=== PATIENT | female | born 1970 | race Caucasian/White ===

== ENCOUNTER 2019-04-26 10:34 | Outpatient (CLI) | payer BC ==
--- NOTE | 2019-05-08 06:47 | MMO ---
Bilateral MAMMO Bilat Screen [facility]. CLINICAL HISTORY: Patient is 48 years old and is seen for screening. VIEWS: The views performed were: bilateral craniocaudal with tomosynthesis and bilateral mediolateral oblique with tomosynthesis. FILMS COMPARED: The present examination has been compared to prior imaging studies performed at [facility] on 12/27/2012, and at [facility] on 04/03/2014, 04/21/2015 and 04/24/2015. MAMMOGRAM FINDINGS: There are scattered fibroglandular densities. There is a stable mass seen in the right breast. There are no suspicious masses, suspicious calcifications, or new areas of architectural distortion. IMPRESSION: THERE IS NO MAMMOGRAPHIC EVIDENCE OF MALIGNANCY. A ROUTINE FOLLOW-UP MAMMOGRAM IN 1 YEAR IS RECOMMENDED. THE RESULTS OF THIS EXAM WERE SENT TO THE PATIENT. ACR BI-RADS Category 2 - Benign finding MAMMOGRAPHY NOTE: 1. A negative mammogram report should not delay a biopsy if a dominant of clinically suspicious mass is present. 2. Approximately 10% to 15% of breast cancers are not detected by mammography. 3. Adenosis and dense breasts may obscure an underlying neoplasm. Reported by: MICHELLE GOODRICH MD Electonically Signed: [id number]
== END 2019-04-26 10:35 | disposition home or self-care (01) ==
LOC: BICMAMMO 10:34
PROVIDERS: ATTEND Family Medicine
DX: Z12.31 Encounter for screening mammogram for malignant neoplasm of breast (principal)
CPT/HCPCS: 77063; 77067

== ENCOUNTER 2019-05-15 07:15 | Outpatient (CLI) | payer BC ==
--- NOTE | 2019-05-15 09:34 | CT ---
CT ABDOMEN AND PELVIS WITH AND WITHOUT IV CONTRAST: HISTORY: Abdominal mass. FINDINGS: The lung bases are clear. There are tiny gallstones. The liver demonstrates decreased attenuation, compared to the spleen, consistent with fatty infiltration. There is a 1 cm subcapsular focal area o f hyperenhancement at the inferior aspect of the right lobe of the liver. No abnormal biliary ductal dilatation is seen. The spleen, pancreas, and adrenal glands are normal. There is an 8 mm, nonobst ructing right renal calculus. A couple small low density lesions in the left renal cortex, measuring up to 7 mm, are likely cysts. No free air, free fluid, or lymphadenopathy is noted in the abdomen or pelvis. The small bowel loops are not abnormally dilated. A normal appearing appendix is present. There is no evidence of aneury smal dilatation of the abdominal aorta. Uterus and ovaries are present. A fibroid uterus is noted with an exophytic abdominopelvic mass/fibr oid arising from the uterus, measuring 13.5 x 9.7 x 12.3 cm. There is a 17 mm lesion in the right ov chay with peripheral enhancement and cannulated margins, consistent with a corpus luteal cyst. There is a small, sclerotic focus involving the L4 vertebral body, likely a bone island. IMPRESSION: 1. Fatty liver. 2. A 1 cm, hyperenhancing right liver lobe lesion, most likely a flash filling hemangioma. Other po ssibilities include benign or malignant/metastatic neoplasia. 3. Nonobstructing, 8 mm right renal calculus. 4. Tiny left renal cysts. 5. Fibroid uterus with a large, exophytic abdominopelvic fibroid. 6. Cholelithiasis. POS: OFF
[2019-05-15] MEDS ORDERED: Iopamidol 370 76% 100 ML VIAL ONE (10:20)
== END 2019-05-15 07:16 | disposition home or self-care (01) ==
LOC: CT 07:15
PROVIDERS: ATTEND Family Medicine
DX: R19.00 Intra-abdominal and pelvic swelling, mass and lump, unspecified site (principal); N28.1 Cyst of kidney, acquired; K80.20 Calculus of gallbladder without cholecystitis without obstruction; D25.9 Leiomyoma of uterus, unspecified; K76.0 Fatty (change of) liver, not elsewhere classified; N20.0 Calculus of kidney; K76.9 Liver disease, unspecified
CPT/HCPCS: 74178; Q9967

== ENCOUNTER 2019-09-03 06:42 | Outpatient (CLI) | payer BC ==
[2019-09-03 11:31] LABS: ALT (SGPT) 72 U/L (8-55); AST (SGOT) 32 U/L (5-34); Albumin 4.2 g/dL (3.5-5.0); Alkaline Phosphatase 80 U/L (40-110); Anion Gap 11 mmol/L (10-20); BUN (Urea Nitrogen) 10 mg/dL (7.0-18.7); Bilirubin, Direct 0.3 mg/dL (0.1-0.3); Bilirubin, Total 0.8 mg/dL (0.2-1.2); Calc. Creatinine Clearance 0 mL/min (70-130); Carbon Dioxide 24 mmol/L (22-29); Chloride 107 mmol/L (98-107); Estimated GFR-MDRD Greater than 90; Globulin 3.1 g/dL (2.4-3.5); Glucose 80 mg/dL (70-105); Potassium 3.4 mmol/L (3.5-5.1); Protein, Total 7.3 g/dL (6.0-8.3); Sodium 139 mmol/L (136-145)
== END 2019-09-03 06:43 | disposition home or self-care (01) ==
LOC: LABBT 06:42
PROVIDERS: ATTEND Obstetrics & Gynecology
DX: Z01.812 Encounter for preprocedural laboratory examination (principal); D25.9 Leiomyoma of uterus, unspecified
CPT/HCPCS: 80053; 80076

== ENCOUNTER 2019-09-04 10:20 | Day surgery (SDC) | payer BC ==
[2019-09-03 08:41] VITALS: BMI 34.4
[2019-09-03 11:20] LABS: #Eosinphils 0.3 thou/uL (0.0-0.7); #Monocytes 0.7 thou/uL (0.11-0.59); #Neutrophils 5.4 thou/uL (1.40-6.50); %Basophils 0.5 % (0.0-1.0); %Lymphocytes 23.4 % (21.0-51.0); %Monocytes 8.1 % (0.0-10.0); Hemoglobin 13.9 g/dL (12.0-16.0); Mean Corpuscular HGB CONC 33.1 g/dL (32.0-36.0); Mean Corpuscular Hemoglobin 28.2 pg (27.0-31.0); Mean Corpuscular Volume 85.1 fL (78.0-98.0); Platelet Count 281 thou/uL (130-400); RBC Distribution Width 12.7 % (11.5-14.5); Red Blood Cell (RBC) Count 4.93 mill/uL (4.20-5.40); White Blood Cell (WBC) Count 8.4 thou/uL (4.8-10.8)
[~2019-09-04 10:20] MED LIST: Dexamethasone 20 MG/5 ML VIAL ONE; Glycopyrrolate 0.2 MG/ML 5 ML SYRINGE ONE; Ketorolac Tromethamine 30 MG/ML VIAL ONE; Lidocaine 1% PF 5 ML VIAL ONE; Ondansetron PF 4 MG/2 ML Vial ONE; PROPOFOL 200 MG/20 ML VIAL ONE; Rocuronium Bromide 10 MG/ML (10ML VIAL) ONE; Vecuronium 10 MG VIAL ONE; diphenhydrAMINE 50 MG/ML VIAL ONE; ePHEDrine/0.9% NaCl/PF SYRINGE 50 mg/10 ml ONE
[2019-09-04] MEDS ORDERED: Midazolam HCl 2 mg/2 ml Vial ONE (10:39)
[2019-09-04] MEDS ORDERED: Fentanyl 100 MCG/2 ML VIAL ONE ×2 (10:39→15:13)
[2019-09-04] MEDS ORDERED: Gabapentin 300 MG CAP ONE (11:00)
[2019-09-04] MEDS ORDERED: CeleCOXIB 100 MG CAP ONE (11:01)
[2019-09-04] MEDS ORDERED: Famotidine/PF 20 mg/2ml Vial ONE (11:01)
[2019-09-04] MEDS ORDERED: ceFOXitin 2 GM/50 ML Duplex BAG ONE (11:02)
[2019-09-04] MEDS ORDERED: Lidocaine 1% w/Epinephrine 1:100K 20 ML VIAL ONE (11:05)
[2019-09-04] MEDS ORDERED: Bupivacaine PF 0.5% 30 ML VIAL ONE (11:05)
[2019-09-04] MEDS ORDERED: Albuterol Sulfate HFA (OR ONLY) ONE (12:30)
[2019-09-04] MEDS ORDERED: Ropivacaine 0.2% 550 ML 750 ML NERVE BLCK SCH (13:30)
[2019-09-04] MEDS ORDERED: ROPIVACAINE HCL NERVE BLCK SCH (14:00)
[2019-09-04] MEDS ORDERED: ADMIXTURE FEE NERVE BLCK SCH (14:00)
[2019-09-04] MEDS ORDERED: Zolpidem Tartrate 5 MG TAB PO PRN (15:56)
[2019-09-04] MEDS ORDERED: diphenhydrAMINE 25 MG CAP PO PRN (15:56)
[2019-09-04] MEDS ORDERED: Promethazine HCl 25 MG/ML VIAL IM PRN ×2 (15:56→16:13)
[2019-09-04] MEDS ORDERED: Ondansetron PF 4 MG/2 ML Vial IVP PRN (15:56)
[2019-09-04] MEDS ORDERED: HYDROcodone/Acetaminophen 5/325 mg Tablet PO PRN ×2 (15:56)
[2019-09-04] MEDS ORDERED: Morphine 4 MG/ML VIAL SLOW IVP PRN (15:56)
[2019-09-04] MEDS ORDERED: Simethicone Chewable 80 MG TAB PO PRN (15:56)
[2019-09-04] MEDS ORDERED: Bisacodyl 10 MG SUPP PR PRN (15:56)
[2019-09-04] MEDS ORDERED: PACU-Morphine 4MG/ML VIAL SLOW IVP PRN (16:13)
[2019-09-04] MEDS ORDERED: HYDROmorphone 2 MG/ML VIAL SLOW IVP PRN (16:13)
[2019-09-04] MEDS ORDERED: Promethazine HCl 25 MG/ML VIAL SLOW IVP PRN (16:13)
[2019-09-04] MEDS ORDERED: Morphine Sulfate 2 MG/ML SYRINGE SLOW IVP PRN (16:13)
[2019-09-04] MEDS ORDERED: Ketorolac Tromethamine 30 MG/ML VIAL IVP PRN (16:13)
[2019-09-04] MEDS ORDERED: Meperidine HCl/PF 25 MG/ML VIAL SLOW IVP PRN (16:13)
[2019-09-04] MEDS ORDERED: Ondansetron HCl/PF 4 MG/2 ML Vial IVP PRN (16:13)
[2019-09-04] MEDS: Sodium Chloride 0.9% 1,000 ML IV SCH ×2 (18:00→23:56)
[2019-09-04] MEDS: Ketorolac Tromethamine 30 MG/ML VIAL IVP SCH ×2 (18:36→23:55)
--- NOTE | 2019-09-05 00:17 | OP ---
DATE OF PROCEDURE: 09/04/2019 PREOPERATIVE DIAGNOSES: 1. Large pelvic mass consistent with fibroid. 2. Planned cholecystectomy per Dr. Sexton. 3. Desires hysterectomy at the time of cholecystectomy. PROCEDURE: 1. Robotic total laparoscopic hysterectomy with left salpingectomy and right partial salpingectomy. 2. Placement of ON-Q pump following a laparoscopic cholecystectomy. 3. Extracorporeal contained morcellation of uterus and fibroid mass. COSURGEON: Joe Sexton MD. PURIFICATION SUPERVISOR: Yamilet Lassiter PA-C. COMPLICATIONS: None. ESTIMATED BLOOD LOSS: From hysterectomy approximately 50 mL. OPERATIVE FINDINGS: 1. The patient was status post cholecystectomy at the start of our case. 2. Small nulliparous cervix. No vaginal lesions or cervical lesions or masses. 3. Normal-appearing uterus with the exception of large pedunculated mass coming from the uterine fundus as approximately 15-18 cm in size. 4. Normal-appearing ovaries bilaterally. 5. Normal left fallopian tube. 6. Right fallopian tube adhered to right pelvic sidewall. 7. Surgical sites hemostatic after hysterectomy. DESCRIPTION OF PROCEDURE: The patient was taken back to the OR with IV fluids running. When she was in the OR, she was placed in lithotomy position and the patient was asleep. The patient was prepped and draped in normal fashion for gynecologic and laparoscopic surgery. Boykin catheter was placed in the bladder with a Galdino syringe, placed at the end for bladder manipulation if needed during the case. An operative speculum was placed in the vagina. A single-tooth tenaculum was used to grasp the anterior lip of the cervix. The uterus sounded to approximately 6 cm and a SCOTT-Zelalem manipulator was assembled with a 6 cm tip and a 3 cm cup. The Zelalem manipulator was placed into the uterus and vagina in routine fashion. At this point, Dr. Joe Sexton began the laparoscopic cholecystectomy and I left the operating room until his procedure was complete. I returned to the operating room after the cholecystectomy was complete. Dr. Sexton had placed a supraumbilical port and 2 right upper quadrant assist ports. Beginning at the supraumbilical port, a laparoscope was placed through this port and the patient was placed in Trendelenburg position. Immediately, a large pelvic mass was noted filling the pelvis. The camera was easily guided around the mass where a normal-appearing uterus and adnexa were noted in the mass that appeared to be connected by a stalk at the fundus. At this point, the decision was made to complete the hysterectomy and myomectomy laparoscopically. The supraumbilical incision which had a 12 mm port was extended to approximately 2.5 cm and Ronaldo retractor was placed in this incision. A GelPort cap was placed over it with a 12 mm port inside. Next, under direct visualization, the right and left lower quadrant 8 mm ports were placed after local anesthesia was injected under the skin. The stab incision was made with a scalpel. After these ports were placed, one of the most medial right upper quadrant port was removed and replaced with an 11 mm assist port. A laparoscopic EndoCatch bag was placed through the GelPort incision into the abdomen for retrieval of the specimen later during the case. Sterile cap was replaced. The abdomen was insufflated and robotic arms were docked. The instruments were entered under direct visualization. The hysterectomy began on the patient's left side where the left fallopian tube was grasped, elevated, cauterized, and transected. The ureter was noted to be running away from the planned area of dissection on the patient's left side. The left utero-ovarian ligament was cauterized and transected allowing the left ovary to fall away to the pelvic sidewall. The round ligament on the patient's left side was cauterized, transected, and divided into anterior posterior leaves. These were taken down towards the level of the uterine artery, which was cauterized and transected after it was identified. The anterior leaf was then dissected down towards the cervix and a bladder flap was created with the bladder dissected away from the planned colpotomy site. Attention was then turned to the contralateral side. The right fallopian tube was noted to be clubbed and adhered to the right pelvic sidewall, so it was not immediately removed, instead attention was turned to the utero-ovarian ligament on the patient's right side, which was cauterized and transected, and allowed the right ovary to fall away to the pelvic sidewall. Filmy adhesions were noted around the right ovary and right fallopian tube. These adhesions were taken down with the scissors to allow the anatomy to fall into its normal position. The round ligament on the patient's right side was cauterized, transected, and divided into anterior and posterior leaf. The uterine artery on the patient's right side was skeletonized and the bladder flap dissection was completed from the right side to the contralateral side with the bladder dissected away from the planned colpotomy site and the uterine arteries transected bilaterally. The colpotomy portion of the procedure then began beginning posteriorly. The colpotomy was made with palpation of the SCOTT-Zelalem manipulator ring through the cervical vaginal tissue. Monopolar scissors were used circumferentially to complete the colpotomy. This was done without difficulty in good visualization throughout the case. After the uterine specimen was completely free from the vagina, the vagina was irrigated and dried. Any small areas of bleeding were controlled with the fenestrated grasper. The vaginal cuff was then closed with Stratafix suture in a running locked fashion and closed in 2 layers. After the vaginal cuff was closed, the surgical sites were irrigated and suctioned dry and the pressure was dropped down to 6 mmHg with no areas of bleeding noted. Next, attention was turned to the right adnexa. Filmy adhesions around the fimbriated end of the fallopian tube and ovary were dissected. The fimbriated end of the fallopian tube was easily dissected away from the right ovary. This portion of the tube was removed and transected. An approximate remaining 2 cm of the fallopian tube was left in situ as it was edematous and densely adhered to the right ovary and pelvic sidewall. Prior to the dissection of the fallopian tube, the right ureter was identified and noted to be well away from the planned area of dissection. Next, the specimen was placed into the retrieval bag. After this was completed, the initial count was done and it was correct. Prior to the bag being brought up through the supraumbilical incision, ON-Q catheter tip was placed under direct visualization and placed into the pelvis. The bag was then brought up through the GelPOINT retractor. The Ronaldo O retractor was replaced with inside the bag. After the incision was extended approximately 1 more cm to a total of 3 cm in length. Next, approximate 1 hour was used to morcellate the specimen which weighed in the end just over 900 grams. An extracorporeal technique was used to completely morcellate the specimen contained within the bag. After the uterus and fibroid specimen were completely removed, the bag and retractor were removed. The incision was irrigated and dried. No areas of bleeding were noted from the incision. The supraumbilical incision was closed at the fascial layer with Vicryl suture. All 5 skin incisions were closed with Monocryl suture and dressed with Dermabond dressing. The vagina was inspected and no bleeding was noted. The patient was cleaned, dried, extubated, and transferred to the recovery room in good condition. Job ID: [id number]
[2019-09-05] MEDS: Ketorolac Tromethamine 30 MG/ML VIAL IVP SCH (05:31)
--- NOTE | 2019-09-05 08:21 | OP ---
DATE OF PROCEDURE: 09/04/2019 PREOPERATIVE DIAGNOSIS: Symptomatic cholelithiasis. PROCEDURE PERFORMED: Laparoscopic cholecystectomy. INDICATIONS: A 49-year-old female who has been having episodic right upper quadrant pain. Ultrasound showed cholelithiasis. FINDINGS: She had a very small caliber cystic duct. DESCRIPTION OF PROCEDURE: After informed consent was obtained, patient was taken to the operating room, given general endotracheal anesthesia, placed in the supine position. Abdomen was prepped and draped in usual fashion. An epigastric midline incision was performed sharply. The fascia incised and a blunt 12 mm trocar inserted. Pneumoperitoneum was created to a pressure of 15 mmHg. A 0 degree laparoscope inserted under direct vision. Three 5 mm ports were placed subcostally. The gallbladder was grasped and advanced superiorly. The peritoneum lysed distally to expose the cystic duct and cystic artery in critical view. These were triply ligated with hemoclips and divided. The gallbladder removed from its fossa utilizing electrocautery, removed from the abdomen through the umbilical port. Hemostasis was assured. The trocars were left in place for the gate technician to perform the hysterectomy. Job ID: [id number]
[2019-09-05 08:37] VITALS: BP 137/74
--- NOTE | 2019-09-05 08:55 | PDOC.EVN ---
Event Note - Event Note Event Note: POD1 S: doing well, minimal discomfort, mostly at CV angles. No N/V. O: VS WNL NAD nonlabored breathing no abdominal distention, minimal ttp, incisions CDI no cords A/P: POD1 sp laparoscopic cholecystectomy,. RATLH/right partial salpingectomy and left salpin with EXCITE of large fibroid. Doing well, plan to DC later today when post op goals are met.
[2019-09-05 12:39] VITALS: TEMP 98.5
[2019-09-09] MEDS ORDERED: Ibuprofen 800 MG TAB PO SCH (22:00)
== END 2019-09-05 13:48 | disposition home or self-care (01) ==
LOC: SDC 10:20 → 3SE 17:14 → SDC 09-05 13:48
PROVIDERS: ATTEND Obstetrics & Gynecology
PROC: 0UT74ZZ Resection of Bilateral Fallopian Tubes, Percutaneous Endoscopic Approach (ICD-10-PCS; principal; 2019-09-04)
PROC: 0FT44ZZ Resection of Gallbladder, Percutaneous Endoscopic Approach (ICD-10-PCS; principal; 2019-09-04)
PROC: 0UT94ZZ Resection of Uterus, Percutaneous Endoscopic Approach (ICD-10-PCS; principal; 2019-09-04)
DX: D25.9 Leiomyoma of uterus, unspecified (principal); N72 Inflammatory disease of cervix uteri; N83.8 Other noninflammatory disorders of ovary, fallopian tube and broad ligament; K80.11 Calculus of gallbladder with chronic cholecystitis with obstruction; Z79.899 Other long term (current) drug therapy; Z88.2 Allergy status to sulfonamides; Z91.013 Allergy to seafood
CPT/HCPCS: 36415; 85025; 86850; 86900; 86901; 88304; 88307; J0131; J0694; J1100; J1200; J1885; J2001; J2250; J2405; J2704; J2795; J3010; S0020; S0028

== ENCOUNTER 2020-07-16 10:20 | Outpatient (CLI) | payer BC | END 2020-07-16 10:21 | disposition home or self-care (01) | LOC: DTY/OP 10:20 | PROVIDERS: ATTEND Surgery | DX: E66.01 Morbid (severe) obesity due to excess calories (principal) | CPT/HCPCS: 97802 ==

== ENCOUNTER 2020-10-30 07:00 | Inpatient (IN) | payer BC ==
[2020-11-12] MEDS ORDERED: Fentanyl 250 MCG/5 ML VIAL ONE (08:46)
[2020-11-12] MEDS ORDERED: Bupivacaine 0.25% HCL 30 ML VIAL ONE (08:51)
[2020-11-12] MEDS ORDERED: XYLOCAINE 2%-EPI 1:100,000 20 ML VIAL ONE (08:51)
[2020-11-12] MEDS ORDERED: Dexamethasone 20 MG/5 ML VIAL ONE (09:21)
[2020-11-12] MEDS ORDERED: PROPOFOL 200 MG/20 ML VIAL ONE (09:21)
[2020-11-12] MEDS ORDERED: Rocuronium Bromide 10 MG/ML (10ML VIAL) ONE (09:21)
[2020-11-12] MEDS ORDERED: PHENYLEPHRINE-NS 100 MCG/ML 10 ML SYRINGE ONE (09:21)
[2020-11-12] MEDS ORDERED: Glycopyrrolate 0.2 MG/ML 5 ML SYRINGE ONE (09:21)
[2020-11-12] MEDS ORDERED: Lidocaine 1% PF 5 ML VIAL ONE (09:21)
[2020-11-12] MEDS ORDERED: Ondansetron PF 4 MG/2 ML Vial ONE (09:21)
[2020-11-12] MEDS ORDERED: SUGAMMADEX SODIUM 200 MG/2 ML VIAL ONE (10:28)
[2020-11-12] MEDS ORDERED: Dextrose 5% in Water 1,000 ML IV PRN (10:33)
[2020-11-12] MEDS ORDERED: Dextrose 50% Abboject 50 ML SYRINGE SLOW IVP PRN (10:33)
[2020-11-12] MEDS ORDERED: hydrALAZINE 20 MG/ML VIAL SLOW IVP PRN (10:33)
[2020-11-12] MEDS ORDERED: diphenhydrAMINE 50 MG/ML VIAL IVP PRN ×2 (10:33→10:45)
[2020-11-12] MEDS ORDERED: Promethazine HCl 25 MG/ML VIAL IM PRN ×3 (10:33→10:45)
[2020-11-12] MEDS ORDERED: Hydrocodone-Acetamin 15 ML UDCUP PO PRN (10:33)
[2020-11-12] MEDS ORDERED: Ondansetron PF 4 MG/2 ML Vial IVP PRN ×2 (10:33→10:45)
[2020-11-12] MEDS ORDERED: Meperidine HCl/PF 25 MG/ML VIAL SLOW IVP PRN (10:44)
[2020-11-12] MEDS ORDERED: Promethazine HCl 25 MG/ML VIAL SLOW IVP PRN (10:44)
[2020-11-12] MEDS ORDERED: Ondansetron HCl/PF 4 MG/2 ML Vial IVP PRN (10:44)
[2020-11-12] MEDS ORDERED: diphenhydrAMINE 25 MG CAP PO PRN (10:45)
[2020-11-12] MEDS ORDERED: Naloxone HCl 0.4 mg/ml Vial IV PRN (10:45)
[2020-11-12] MEDS ORDERED: Zolpidem Tartrate 5 MG TAB PO PRN (10:45)
[2020-11-12] MEDS ORDERED: HYDROmorphone 10 mg/100 ml CADD IVPB PRN (10:45)
[2020-11-12] MEDS ORDERED: Communication Order-Pharmacy FS SCH (10:45)
[2020-11-12] MEDS ORDERED: diphenhydrAMINE 50 MG/ML VIAL IM PRN (10:45)
[2020-11-12] MEDS ORDERED: Fentanyl 100 MCG/2 ML VIAL ONE (10:55)
[2020-11-12] MEDS ORDERED: Sodium Chloride 0.9% (PF) 10 ML VIAL FS PRN (11:00)
--- NOTE | 2020-11-12 11:17 | OP ---
DATE OF PROCEDURE: 11/12/2020 PREOPERATIVE DIAGNOSIS: Morbid obesity. PROCEDURE PERFORMED: Laparoscopic sleeve gastrectomy with esophagogastroscopy. INDICATIONS: This is a 50-year-old female, morbidly obese, who has attempted multiple weight loss programs without success. FINDINGS: A 38-Czech bougie used. DESCRIPTION OF PROCEDURE: After informed consent was obtained, the patient was taken to the operating room and given general endotracheal anesthesia, placed in the supine position. Abdomen was prepped and draped in the usual fashion. Local anesthesia was infiltrated subcutaneously and deep. A 12 mm incision was performed approximately 8 inches below the xiphoid slightly to the left. Veress needle inserted. Drop test performed. Pneumoperitoneum was created to a volume of 2 L of carbon dioxide. Utilizing a bladeless 12 mm trocar and 0 degree laparoscope, direct visual entry into the abdominal cavity was performed. Pneumoperitoneum was then created to a pressure of 15 mmHg and the patient was placed in a steep reverse Trendelenburg position. A Tracy liver retractor was inserted. Left lobe of the liver retracted superiorly. The pylorus was identified, and a 12 mm port was placed on the right beneath it and two 12's placed left subcostal. The omentum was taken off the greater curvature 5 cm from the pylorus utilizing the LigaSure. Short gastrics divided with LigaSure. Left crura defined with LigaSure. A 38-Czech bougie inserted, directed into the antrum. The linear 60 mm green load stapler used to divide the antrum to the bougie, gold load along the bougie, and a series of blues through the angle of His. Intraoperative endoscopy was performed. The video endoscope was inserted under direct vision, advanced into the sleeve. The staple line was inspected. There was no bleeding. Staple line then tested by inflating the stomach with pressurized air under water. There was no air leak. Stomach was decompressed. Scope was removed. The remnant stomach was removed from the abdomen through left lateral port site. The fascia was closed with 0 Vicryl suture and the GraNee needle. The trocars and retractors were removed. Skin was closed with interrupted 4-0 Rapide. Dermabond applied. The patient tolerated the procedure well, transferred to Recovery in good condition. Sponge and needle count verified correct x2. Job ID: [id number]
[2020-11-12] MEDS ORDERED: Promethazine HCl 25 MG/ML VIAL ONE (11:55)
[2020-11-12] MEDS ORDERED: Ketorolac Tromethamine 30 MG/ML VIAL IVP SCH (12:00)
[2020-11-12] MEDS ORDERED: D5 1/2 NS w/20 mEq KCL 1,000 ML ONE (12:33)
[2020-11-12] MEDS: D5 1/2 NS w/20 mEq KCL 1,000 ML IV SCH ×2 (14:49→20:58)
[2020-11-12] MEDS ORDERED: Ketorolac Tromethamine 30 MG/ML VIAL ONE (14:50)
[2020-11-12 18:13] VITALS: TEMP 97.8; BMI 34.4
[2020-11-12] MEDS: Ketorolac Tromethamine 30 MG/ML VIAL IVP SCH (20:58)
[2020-11-13] MEDS: Ketorolac Tromethamine 30 MG/ML VIAL IVP SCH ×2 (03:54→08:44)
[2020-11-13] MEDS: D5 1/2 NS w/20 mEq KCL 1,000 ML IV SCH ×2 (03:54→13:27)
[2020-11-13 06:09] LABS: #Lymphocytes 1.1 thou/uL (1.20-3.40); #Monocytes 0.9 thou/uL (0.11-0.59); #Neutrophils 14.4 thou/uL (1.40-6.50); %Lymphocytes 6.6 % (21.0-51.0); %Monocytes 5.5 % (0.0-10.0); %Neutrophils 87.8 % (42.0-75.0); Hemoglobin 12.7 g/dL (12.0-16.0); Mean Corpuscular HGB CONC 32.7 g/dL (32.0-36.0); Mean Corpuscular Volume 85.5 fL (78.0-98.0); Platelet Count 234 thou/uL (130-400); RBC Distribution Width 12.3 % (11.5-14.5); Red Blood Cell (RBC) Count 4.55 mill/uL (4.20-5.40); White Blood Cell (WBC) Count 16.4 thou/uL (4.8-10.8)
[2020-11-13 06:28] LABS: Anion Gap 8 mmol/L (10-20); BUN (Urea Nitrogen) Less than 4 mg/dL (9.8-20.1); Calc. Creatinine Clearance 133 mL/min (70-130); Carbon Dioxide 26 mmol/L (22-29); Chloride 108 mmol/L (98-107); Glucose 142 mg/dL (70-105); Potassium 4.7 mmol/L (3.5-5.1); Sodium 137 mmol/L (136-145)
[2020-11-13] MEDS ORDERED: Pantoprazole 40 MG VIAL IVP SCH (09:00)
[2020-11-13] MEDS ORDERED: Enoxaparin Sodium 40 MG/0.4 ML SYRINGE SC SCH ×2 (09:00)
[2020-11-13 11:18] VITALS: BP 113/74
--- NOTE | 2020-11-14 07:53 | DIS ---
DATE OF ADMISSION: 11/12/2020 DATE OF DISCHARGE: 11/13/2020 DISCHARGE DIAGNOSIS: Morbid obesity. PROCEDURES DURING ADMISSION: Laparoscopic sleeve gastrectomy, intraoperative esophagogastroscopy. HOSPITAL COURSE: The patient was admitted, taken to the operating room, where she underwent sleeve gastrectomy. Postoperatively, she is doing well. She is tolerating liquids well. Her pain is controlled on p.o. meds. She is discharged home on hydrocodone elixir and Zofran. She will follow up with me in 2 weeks. Job ID: [id number]
== END 2020-11-13 14:47 | disposition home or self-care (01) | DRG 621 ==
LOC: EDSTATUS 11-04 07:00 → SURG A 11-12 06:58
PROVIDERS: ADMIT Surgery; ATTEND Surgery
PROC: 0DB64Z3 Excision of Stomach, Percutaneous Endoscopic Approach, Vertical (ICD-10-PCS; principal; 2020-11-12)
PROC: 0DJ08ZZ Inspection of Upper Intestinal Tract, Via Natural or Artificial Opening Endoscopic (ICD-10-PCS; 2020-11-12)
DX: E66.01 Morbid (severe) obesity due to excess calories (principal); Z20.822 Contact with and (suspected) exposure to COVID-19; E78.5 Hyperlipidemia, unspecified; J30.2 Other seasonal allergic rhinitis; Z68.34 Body mass index [BMI] 34.0-34.9, adult; Z90.710 Acquired absence of both cervix and uterus
CPT/HCPCS: 36415; 80048; 85025; 88307; 88342; C9113; J0690; J1100; J1650; J1885; J2405; J2550; J2704; J3010; J3480; S0020

== ENCOUNTER 2021-06-11 12:28 | Outpatient (CLI) | payer BC | END 2021-06-11 12:29 | disposition home or self-care (01) | LOC: BICMAMMO 12:28 | PROVIDERS: ATTEND Family Medicine | DX: Z12.31 Encounter for screening mammogram for malignant neoplasm of breast (principal); Z80.3 Family history of malignant neoplasm of breast | CPT/HCPCS: 77063; 77067 ==

== ENCOUNTER 2022-06-17 12:08 | Outpatient (CLI) | payer BC | END 2022-06-17 12:09 | disposition home or self-care (01) | LOC: BICMAMMO 12:08 | PROVIDERS: ATTEND Family Medicine | DX: Z12.31 Encounter for screening mammogram for malignant neoplasm of breast (principal); Z80.3 Family history of malignant neoplasm of breast | CPT/HCPCS: 77063; 77067 ==

== ENCOUNTER 2023-07-11 13:23 | Outpatient (CLI) | payer BC | END 2023-07-11 13:24 | disposition home or self-care (01) | LOC: BICMAMMO 13:23 | PROVIDERS: ATTEND Family Medicine | DX: Z12.31 Encounter for screening mammogram for malignant neoplasm of breast (principal); Z80.3 Family history of malignant neoplasm of breast | CPT/HCPCS: 77063; 77067 ==

== ENCOUNTER 2024-07-12 08:25 | Outpatient (CLI) | payer BC | END 2024-07-12 08:26 | disposition home or self-care (01) | LOC: BICMAMMO 08:25 | PROVIDERS: ATTEND Family Medicine | DX: Z12.31 Encounter for screening mammogram for malignant neoplasm of breast (principal); Z80.3 Family history of malignant neoplasm of breast | CPT/HCPCS: 77063; 77067 ==

== ENCOUNTER 2025-07-23 15:01 | Outpatient (CLI) | payer BC | END 2025-07-23 15:02 | disposition home or self-care (01) | LOC: BICMAMMO 15:01 | PROVIDERS: ATTEND Family Medicine | DX: Z12.31 Encounter for screening mammogram for malignant neoplasm of breast (principal); Z80.3 Family history of malignant neoplasm of breast | CPT/HCPCS: 77063; 77067 ==